=== PATIENT | male | born 1965 | race Caucasian/White ===

== ENCOUNTER → 2023-06-21 14:12 | Outpatient (REF) | payer BC, SELFPAY | LOC: RAD 14:12 | PROVIDERS: ATTENDING PHYSICIAN Specialist; FAMILY PHYSICIAN Family Medicine | DX: N13.30 Unspecified hydronephrosis (principal) | CPT/HCPCS: 74176 ==

== ENCOUNTER → 2023-09-30 06:18 | Day surgery (SDC) | payer BC, SELFPAY ==
[2023-09-29 07:00] VITALS: BMI 27.0
[2023-09-29 09:03] LABS: Hematocrit 45.2 % (39.0-52.0); Hemoglobin 15.9 g/dL (13.0-18.0); Mean Corp Hgb Conc. 35.2 g/dL (33.0-37.0); Mean Corpuscular Volume 90.9 fL (80.0-94.0); Mean Platelet Volume 11.2 fL (7.4-10.4); Platelet Count 108 10^3/uL (130-400); Red Blood Cell Count 4.97 10^6/uL (4.70-6.10); Red Cell Dist. Width 12.2 % (11.5-14.5); White Blood Cell Count 3.7 10^3/uL (4.8-10.8)
[2023-09-29 09:06] LABS: INR 0.94; PT 12.5 Sec (11.4-14.6)
[2023-09-29 09:07] LABS: APTT 32.6 Sec (23.4-35.0)
[2023-09-29 09:35] LABS: Blood Urea Nitrogen 21 mg/dl (9-20); Calcium 9.1 mg/dl (8.4-10.2); Carbon Dioxide 25 mmol/L (22-30); Chloride 103 mmol/L (98-107); Estimated Creatinine Clearance 86 ml/min; Glucose 88 mg/dl (70-99); Potassium 4.6 mmol/L (3.5-5.1); Sodium 141 mmol/L (135-145); eGFR > 60.00
[2023-09-29 09:38] LABS: Urine Albumin Negative (Neg - Trace); Urine Bilirubin Negative (Negative); Urine Character Clear (Clear); Urine Color Yellow; Urine Glucose Negative (Negative); Urine Ketone Negative (Negative); Urine Leukocyte Negative (Negative); Urine Nitrite Negative (Negative); Urine Occult Blood Negative (Negative); Urine Urobilinogen Negative (Neg - 1+)
[2023-09-30] VITALS (10 sets, daily range): BP systolic 121–131; BP diastolic 88–101; BMI 27.0
[2023-09-30] MEDS: NORMOSOL-R 1000 IV (08:12)
[2023-09-30] MEDS: Pyridium 200 MG PO (11:27)
[2023-10-05 12:00] LABS: Stone Analysis Mass 328 mg
== END ==
LOC: SDS 06:18
PROVIDERS: ATTENDING PHYSICIAN Specialist; FAMILY PHYSICIAN Family Medicine
DX: N20.0 Calculus of kidney (principal); N28.82 Megaloureter
CPT/HCPCS: 52356; 74420; 76000; 80048; 81003; 82365; 85027; 85610; 85730; 93005; C1758; C1894; C2617

== ENCOUNTER → 2023-11-11 08:25 | Outpatient (REF) | payer BC, SELFPAY | LOC: RAD 08:25 | PROVIDERS: ATTENDING PHYSICIAN Family Medicine | DX: M25.50 Pain in unspecified joint (principal) | CPT/HCPCS: 73130; 73630 ==